=== PATIENT | female | born 1985 | race Caucasian/White ===

== ENCOUNTER 2021-09-22 11:03 | Inpatient (IN) | payer OTHER ==
[2021-09-22] MEDS ORDERED: Methylergonovine 0.2 MG/ML VIAL IM PRN ×2 (12:42→18:03)
[2021-09-22] MEDS ORDERED: NS w/ Oxytocin 30 units 500 ML IV SCH ×2 (12:42)
[2021-09-22] MEDS ORDERED: HYDROcodone/Acetaminophen 5/325 mg Tablet PO PRN ×4 (12:42→18:03)
[2021-09-22] MEDS ORDERED: Lactated Ringer's 1,000 ML IV SCH (12:42)
[2021-09-22] MEDS ORDERED: Lidocaine 1% (PF) 30 ML VIAL SC PRN (12:42)
[2021-09-22] MEDS ORDERED: Misoprostol 200 MCG TAB PR PRN (12:42)
[2021-09-22] MEDS ORDERED: Ondansetron PF 4 MG/2 ML Vial IVP PRN ×2 (12:42→18:03)
[2021-09-22] MEDS ORDERED: Ibuprofen 800 MG TAB PO PRN (12:42)
[2021-09-22] MEDS ORDERED: hydrALAZINE 20 MG/ML VIAL SLOW IVP PRN ×2 (12:42→18:03)
[2021-09-22] MEDS ORDERED: Carboprost 250 MCG/ML AMP IM PRN (12:42)
[2021-09-22] MEDS ORDERED: Promethazine HCl 25 MG/ML VIAL IM PRN (12:42)
[2021-09-22] MEDS ORDERED: Acetaminophen 500 MG TAB PO PRN (12:42)
[2021-09-22] MEDS ORDERED: Butorphanol Tartrate 1 MG/ML VIAL SLOW IVP PRN (12:42)
[2021-09-22] MEDS ORDERED: Diphenoxylate HCl/Atropine Tablet PO PRN (12:42)
[2021-09-22 12:55] LABS: Hemoglobin 10.9 g/dL (12.0-15.5); Mean Corpuscular HGB CONC 32.4 g/dL (32.0-36.0); Mean Corpuscular Hemoglobin 28.2 pg (27.0-33.0); Mean Platelet Volume 9.8 fl (7.4-10.4); Platelet Count 363 10x3/uL (150-450); RBC Distribution Width 15.4 % (11.5-14.5); Red Blood Cell (RBC) Count 3.86 10x6/uL (3.90-5.03); White Blood Cell (WBC) Count 10.4 10x3/uL (3.5-10.5)
[2021-09-22 13:24] VITALS: BMI 41.6
[2021-09-22 13:32] LABS: Syphilis Antibody Nonreactive (Nonreactive); Syphilis Antibody Index 0.04 S/CO (<1.00 Non-Reactive)
[2021-09-22 13:34] LABS: Hep B Surf Ag Non-Reactive S/CO (NonReactive)
[2021-09-22 14:14] LABS: HBSAg Index 0.16 S/CO (0-0.99)
[2021-09-22] MEDS ORDERED: Benzocaine-Menthol 82.5 ML CAN TOP PRN (18:03)
[2021-09-22] MEDS ORDERED: Bisacodyl 10 MG SUPP PR PRN (18:03)
[2021-09-22] MEDS ORDERED: Lanolin Ointment 7 GM TUBE TOP PRN (18:03)
[2021-09-22] MEDS ORDERED: Milk Of Magnesia 30 ML UDCUP PO PRN (18:03)
[2021-09-22] MEDS ORDERED: Preparation H Ointment 28 GM TUBE PR PRN (18:03)
[2021-09-22] MEDS ORDERED: NS w/ Oxytocin 30 units 500 ML IV PRN (18:03)
[2021-09-22] MEDS ORDERED: Misoprostol 200 MCG TAB VAG PRN (18:03)
[2021-09-22] MEDS ORDERED: Ferrous Sulfate 325 MG TAB PO SCH (18:15)
[2021-09-22] MEDS: Ibuprofen 800 MG TAB PO SCH (18:21)
[2021-09-23] MEDS: Docusate 100 MG CAP PO SCH ×2 (00:22→09:12)
[2021-09-23] MEDS: Ibuprofen 800 MG TAB PO SCH ×3 (00:23→17:38)
[2021-09-23] MEDS: Ferrous Sulfate 325 MG TAB PO SCH ×2 (07:57→15:27)
[2021-09-23 15:24] VITALS: BP 131/70; TEMP 98.4
== END 2021-09-23 18:20 | disposition home or self-care (01) | DRG 806 ==
LOC: CSHLD/OP 11:03 → CSHLD 11:05 → CSHPP 18:30
PROVIDERS: ADMIT Obstetrics & Gynecology; ATTEND Obstetrics & Gynecology
PROC: 10E0XZZ Delivery of Products of Conception, External Approach (ICD-10-PCS; principal; 2021-09-22)
PROC: 10907ZC Drainage of Amniotic Fluid, Therapeutic from Products of Conception, Via Natural or Artificial Opening (ICD-10-PCS; 2021-09-22)
PROC: 0UQMXZZ Repair Vulva, External Approach (ICD-10-PCS; 2021-09-22)
DX: O99.02 Anemia complicating childbirth (principal); O99.324 Drug use complicating childbirth; Z37.0 Single live birth; O99.214 Obesity complicating childbirth; E66.01 Morbid (severe) obesity due to excess calories; Z3A.39 39 weeks gestation of pregnancy; F12.90 Cannabis use, unspecified, uncomplicated; D64.9 Anemia, unspecified; O71.82 Other specified trauma to perineum and vulva
CPT/HCPCS: 36415; 85027; 86780; 86850; 86900; 86901; 87340; J2001; J2590